=== PATIENT | male | born 1975 | race Caucasian/White ===

== ENCOUNTER 2018-06-22 09:33 | Emergency (ER) | payer BC ==
[2018-06-22 09:51] VITALS: BP 127/83
--- NOTE | 2018-06-22 10:27 | UC ---
Abdominal Pain Male HPI - HPI Summary HPI Summary: 43 year old male patient presents with 1 day history of lower abdominal pain. Describes as intermittent "burning" that only occurs when he is lying down or standing. Subsides when sitting. Denies fever, chills, nausea, vomiting, diarrhea, dysuria, frequency, urgency, hematuria, or penile discharge. Monogamous female partner (spouse). Normal brown formed BM this am. - History of Current Complaint Chief Complaint: [facility] Stated Complaint: PAIN ABOVE HIPS Time Seen by Provider: 06/22/18 10:10 Hx Obtained From: Patient Onset/Duration: Sudden Onset Timing: Intermittent Episodes Lasting: - Only occurs when lying or standing. Severity Initially: Moderate Severity Currently: Moderate Pain Intensity: 6 Radiates: No Character: Burning Aggravating Factor(s): Other - positional (see above) Alleviating Factor(s): Other - sitting Associated Signs And Symptoms: Positive: Negative, Other - Risk Factors Testicular Torsion: Negative Cardiac Risk Factors: Negative - Allergies/Home Medications Allergies/Adverse Reactions: Allergies Allergy/AdvReac Type Severity Reaction Status Date / Time No Known Allergies Allergy Verified 01/31/14 06:41 PMH/Surg Hx/FS Hx/Imm Hx - Additional Past Medical History Additional PMH: non-contributory Previously Healthy: Yes - Surgical History Surgical History: Yes Surgery Procedure, Year, and Place: Vasectomy, 2010; Tonsillectomy as a child - Social History Occupation: Employed Full-time Lives: With Family Alcohol Use: Rare Substance Use Type: None Smoking Status (MU): Never Smoked Tobacco Review of Systems Constitutional: Negative Skin: Negative Respiratory: Negative Cardiovascular: Negative Gastrointestinal: Abdominal Pain Genitourinary: Negative Is Patient Immunocompromised?: No All Other Systems Reviewed And Are Negative: Yes Physical Exam Triage Information Reviewed: Yes Vital Signs: Initial Vital Signs Temp 98.3 F 06/22/18 09:41 Pulse 75 06/22/18 09:41 Resp 16 06/22/18 09:41 BP 127/83 06/22/18 09:41 Pulse Ox 98 06/22/18 09:41 Vital Signs Reviewed: Yes Respiratory Exam: Normal Cardiovascular Exam: Normal Abdomen Description: Positive: Nontender, No Organomegaly, Soft, Other: - reports burning lower abdominal pain when lying for exam but unchanged with palpation. Negative: CVA Tenderness (R), CVA Tenderness (L) Bowel Sounds: Positive: Present Skin Exam: Normal Diagnostics - Laboratory Diagnostic Studies Completed/Ordered: UA POC negative except for trace ketones Abd Pain Male Course/Dx - Course Course Of Treatment: Patient with 1 day of lower abdominal/pelvic pain. History and physical benign except for onset of lower abdominal pelvic pain with lying for exam. UA normal except trace ketones. Discussed with patient that I cannot rule out possible diagnoses including appendicitis, colitis, or prostatitis and recommend further evaluation in the ED. Patient is electing not to go to ED at this time. AMA signed. Reviewed warning symptoms that would warrant immediate evaluation in the ED. Verbalizes understanding and agrees with POC. - Differential Dx/Clinical Impression Differential Diagnosis/HQI/PQRI: Appendicitis, Diverticulitis, Prostatitis, Urinary Tract Infection, Other - colitis Provider Diagnoses: Lower abdominal pain/Pelvic pain Discharge - Sign-Out/Discharge Documenting (check all that apply): Patient Departure - Discharge Plan Condition: Stable Disposition: HOME Patient Education Materials: Acute Abdominal Pain (ED) Referrals: No Primary Care Phys,NOPCP [Primary Care Provider] - Additional Instructions: Seek immediate medical attention in the emergency room if you develop fever greater than 100.5 F, have increased or persistent abdominal pain, develop chest pain, shortness of breath, nausea with persistent vomiting, you vomit blood or have blood in your stool, become weak, dizzy, or lose consciousness, or have ANY worsening of symptoms. - Billing Disposition and Condition Condition: STABLE Disposition: Home
--- NOTE | 2018-06-24 08:28 | UC ---
- Progress Note Progress Note: urine culture final neg no change [email or web address] 06/24/18 Discharge - Sign-Out/Discharge Documenting (check all that apply): Patient Departure - Discharge Plan Condition: Stable Disposition: HOME Patient Education Materials: Acute Abdominal Pain (ED) Referrals: No Primary Care Phys,NOPCP [Primary Care Provider] - Additional Instructions: Seek immediate medical attention in the emergency room if you develop fever greater than 100.5 F, have increased or persistent abdominal pain, develop chest pain, shortness of breath, nausea with persistent vomiting, you vomit blood or have blood in your stool, become weak, dizzy, or lose consciousness, or have ANY worsening of symptoms. - Billing Disposition and Condition Condition: STABLE Disposition: Home
== END 2018-06-22 11:04 | disposition home or self-care (01) ==
LOC: UCCORT 09:33
DX: R10.30 Lower abdominal pain, unspecified (principal); R10.2 Pelvic and perineal pain
CPT/HCPCS: 81003; 87086; 99202; G0463